=== PATIENT | female | born 1985 | race Asian ===

== ENCOUNTER 2016-06-22 15:05 | Inpatient (IN) | payer OTHER ==
[~2016-06-22] VITALS: Ht 165.1 cm; Wt 67.6 kg
[~2016-06-22 15:05] MED LIST: OXYC1TAB24 PO
[2016-06-22] MEDS ORDERED: Labetalol 5 mg/mL 4 mL Inj IVPUSH ONE (15:45)
[2016-06-22 16:40] LABS: Mean Corpuscular Hemoglobin 32.7 pg (27.0-35.0); Mean Corpuscular Volume 94.9 fL (81-100)
[2016-06-22] MEDS ORDERED: Lactated Ringer's 1,000 ML IV SCH (17:10)
[2016-06-22] MEDS ORDERED: Labetalol 5 mg/mL 20 mL Inj IV ONE (17:10)
[2016-06-22] MEDS ORDERED: diphenhydrAMINE 50 mg Capsule PO PRN (18:30)
[2016-06-22] MEDS ORDERED: Oxytocin 30 Units/500 mL LR 30 UNITS in IV Premix 1 EACH IV PRN (18:30)
[2016-06-22] MEDS ORDERED: Calcium GLUCOnate 10% (Gm) 1 Gm/10 mL Inj IV PRN (18:35)
[2016-06-22] MEDS ORDERED: Magnesium Sulf 4 Gm/100 mL H2O 4 GM in IV Premix 1 EACH IV ONE (18:35)
[2016-06-22] MEDS: Magnesium Sulf 20 Gm/500mL H2O 20 GM in IV Premix 1 EACH IV SCH (19:39)
[2016-06-22] MEDS ORDERED: Labetalol 5 mg/mL 4 mL Inj IV PRN (20:25)
[2016-06-22] MEDS ORDERED: hydrALAZINE 20 mg/mL Inj IVPUSH PRN (20:25)
--- NOTE | 2016-06-23 02:16 | HP ---
[address] [address] HISTORY AND PHYSICAL PATIENT: BOSTON MCGUIRE : 1985 MR#: [id number] ADMIT: 06/22/2016 JOB ID: [id number] ADMISSION DIAGNOSIS: Severe gestational hypertension, admitted for induction of labor and blood pressure is control.. HISTORY OF PRESENT ILLNESS: The patient is 31 years old 3, para 0-0-2-0, at 36 weeks and 6 days gestational age by LMP, confirmed by first trimester ultrasound, who was sent from the office for acute onset of the elevated blood pressures. Upon arrival to the triage blood pressures were in severe ranges, Patient received two doses of IV labetalol in triage that did not improve her severe ranges of blood pressures, and Dr. Neda Snow at [facility] was consulted and recommended induction of labor and magnesium sulfate for seizure prophylaxis. Patient denied any headache, visual symptoms, right upper quadrant pain. Denied any leakage of fluid, contractions, vaginal bleeding. Reports movements. PAST OBSTETRICAL HISTORY: 2009 elective termination of with suction D and C, 2016 spontaneous and the current . PAST GYNECOLOGIC HISTORY: No history of abnormal Pap smears. No history of STDs. PAST MEDICAL HISTORY: History of chronic hypertension. Blood pressure had been normal throughout this entire except for today's office visit. PAST SURGICAL HISTORY: Breast augmentation and suction D and C. ALLERGIES: No known drug allergies. MEDICATIONS: vitamins. SOCIAL HISTORY: Denied any alcohol consumption. Denied any drugs of abuse. Denied any cigarette smoking. LABORATORIES: AB positive, antibody negative, varicella immune, rubella immune, serology nonreactive, hepatitis B surface antigen negative. HIV nonreactive. GC and chlamydia cultures negative. Quad screen negative. PREECLAMPSIA LABORATORIES: At triage, AST 25, ALT 15. Creatinine is 0.72. Urine protein creatinine ratio is less than 0.22. Hemoglobin 12.8, hematocrit 37.2, platelets 246, white blood count is 8.1. PHYSICAL EXAMINATION: GENERAL: Patient is alert, oriented x3. Vital Signs: Blood pressure ranges are 189-148 systolic 118-87 diastolic. The patient received two doses of labetalol 20 mg IV at 1618 and 40 mg of labetalol IV at 1647. Blood pressures rebounded again to severe ranges after each dose. Pulse is 83, respirations are 18. Heart: Regular rate and rhythm. Positive S1, S2. Lungs: Clear to auscultation bilaterally upper and lower zones. Abdomen: Gravid uterus. No right upper quadrant tenderness appreciated. Nondistended abdomen. Extremities: Lower extremities, no calf tenderness appreciated bilaterally. Deep tendon reflexes are 1+ upper, 1+ lower. No clonus. Cervical Exam: 1 cm dilated cervix, long and high. heart tracing is showing baseline of 145 beats per minute, positive accelerations, no decelerations, moderate variability, reactive tracing. ASSESSMENT AND PLAN: The patient is a 31-year-old, 3, para 0-0-2-0, at 36 weeks and 6 days gestational age by last menstrual period, confirmed by first trimester ultrasound, admitted for severe ranges of gestational hypertension that is not controlled with IV labetalol. Discussed with Dr. Neda Snow from [facility] group. She recommended admission for induction of labor. Although the preeclampsia labs are within normal limits, but Dr. Snow felt the patient is having evolving preeclampsia. The patient would also require magnesium sulfate for seizure prophylaxis due to severe uncontrolled hyprertension. 1. start magnesium sulfate at 4 g bolus and 2 g IV maintenance dose per hour. 2. Preeclampsia labs every 12 hours. 3. Induction of labor. We will start with cervical ripening agent considering Melvin's score of 2. 4. Discussed intrapartum analgesia options with the patient. She is still considering her options. 5. GBS unknown status. No prophylaxis indicated at 37 weeks. 6. heart tracing is reactive. We will continue with external monitoring. 7. If BP not controlled with magnesium sulfate; add labetalol 200mg Q 8hr PO and titrate up to a maximum of 800mg Q 8 hours. Then add hydralazine 10mg p.o Q 6 hrs as a second agent. All the above discussed in details with the patient who agreed to the plan. MTDD
[2016-06-23] MEDS: Lactated Ringer's 1,000 ML IV SCH ×3 (02:30→18:16)
[2016-06-23] MEDS ORDERED: fentaNYL-PF 50 mCg/mL 2 mL Inj ONE (06:09)
[2016-06-23] MEDS ORDERED: Oxytocin 10 Unit/mL Inj ONE (06:09)
[2016-06-23] MEDS ORDERED: Morphine PF 1 mg/mL 10 mL Inj ONE (06:09)
[2016-06-23] MEDS ORDERED: Bupivacaine-MPF 0.75% 30 mL Inj ONE (06:09)
[2016-06-23] MEDS ORDERED: Ondansetron 2 mg/mL 2 mL Inj ONE (06:09)
[2016-06-23] MEDS: Magnesium Sulf 20 Gm/500mL H2O 20 GM in IV Premix 1 EACH IV SCH ×2 (07:00→17:34)
[2016-06-23 07:40] LABS: BASOPHILS % (AUTO) 0.2 % (0-3); EOSINOPHILS % (AUTO) 0 % (0-5); MONOCYTES % (AUTO) 4.9 % (4-12); Mean Corpuscular Hemoglobin 33.1 pg (27.0-35.0); Mean Corpuscular Volume 95.7 fL (81-100); NEUTROPHILS % (AUTO) 86.2 % (40-74); Platelet Count 231 bil/L (150-400)
[2016-06-23] MEDS ORDERED: Sodium Citrate-Citric Acid 15 mL Solution ONE (08:09)
[2016-06-23] MEDS ORDERED: Sodium Citrate-Citric Acid 15 mL Solution PO SCH (08:20)
[2016-06-23] MEDS ORDERED: CeFAZolin Inj 2 GM in IV Premix 1 EACH IV ONE (08:20)
--- NOTE | 2016-06-23 08:24 | PCM.HPANE ---
Patient Data Surgeon Admitting Provider:Katie George MD Attending Provider:Katie George MD Primary Care Physician:Arina Other Provider:Danyelle Hernandes Anesthesia Reason for Visit Induction INDUCTION Ht/WT & BMI Body Mass Index Allergies Coded Allergies: No Known Allergies (Unverified , 05/02/15) Diabetes History Hx Diabetes?: No Medications Active Scripts oxyCODONE-Acetaminophen 5-325 mg 1 Each Tablet1-2 Tab PO Q6H PRN For Pain #20 TABLET Prov:Jocelyn Sims MD 05/02/15 History Cardiovascular History: Denies:: Congestive Heart Failure Hypertension Respiratory History: Denies:: Tuberculosis Hx Diabetes: No Smoking Status: Unknown if Ever Smoker Stop/Bang Risk Assessment Category Category 1A: Patient has history of documented sleep apnea, and HAS NOT received any narcotic, sedative or anesthesia administration during this stay. Category 1B: Patient has history of documented sleep apnea, and HAS received any narcotic , sedative or anesthesia administration during this stay Category 2: Patient has SUSPECTED Obstructive Sleep Apnea, and HAS received any narcotic , sedative or anesthesia administration during this stay. Category 3: Patient has SUSPECTED Obstructive Sleep Apnea and HAS NOT received narcotic, sedative or anesthesia administration during this stay. Category 4: Outpatient in Procedural Areas with known sleep apnea or who screen positive for High Risk via the STOP/BANG questionnaire. Exam Exam General Appearance: Alert, Oriented X3, Cooperative, Severe Distress HEENT/AIRWAY: MP 2, Neck Movement (from), Mouth Opening (wnl) Lungs: Clear to Auscultation Heart: Exam Unremarkable Meds/Labs/Diagnostics Admission Meds Current Medications Labetalol HCl (Trandate Inj) 20 mg ONCE ONCE IVPUSH Last administered on 16:21; Start 06/22/16 at 15:45; Stop 06/22/16 at 15:46; Status DC Dinoprostone 10 mg 10 mg ONCE ONCE VAGINAL Last administered on 06/22/16 19: 33; Start 06/22/16 at 18:30; Stop 06/22/16 at 18:33; Status DC Magnesium Sulfate/ Premix (Magnesium Sulf 4 Gm/100 mL H2O/ IV Premix) 100 ml @ 200 mls/hr ONCE ONCE IV Last administered on 06/22/16 19:01; Start 06/22/16 at 18:35; Stop 06/22/16 at 19:04; Status DC Labetalol HCl (Normodyne) 200 mg Q8H PO Last administered on 06/23/16t 05:48; Start 06/22/16 at 21:35 Labs Test 06/22/16 15:10 06/22/16 16:00 06/22/16 16:04 06/23/16 07:33 Hold Urine Received (Received) Urine Random Creatinine 18mg/dL (16-392) Urine Random Total Protein < 4mg/dL (0-15) Urine Protein/Creatinine Ratio < 0.22 Hematology Comments White Blood Count 11.2th/mm3 (3.8-10.1) Red Blood Count 3.50mil/mm3 (3.90-5.20) Hemoglobin 11.6g/dL (12.0-15.6) Hematocrit 33.5% (35.0-46.0) Mean Corpuscular Volume 95.7fL (81-100) Mean Corpuscular Hemoglobin 33.1pg (27.0-35.0) Mean Corpuscular Hemoglobin Concent 34.6% (32.0-37.0) Red Cell Distribution Width 12.3% (12.3-15.4) Platelet Count 231bil/L (150-400) Neutrophils (%) (Auto) 86.2% (40-74) Lymphocytes (%) (Auto) 8.5% (14-46) Monocytes (%) (Auto) 4.9% (4-12) Eosinophils (%) (Auto) 0% (0-5) Basophils (%) (Auto) 0.2% (0-3) Test 06/23/16 07:40 Plan Impression Patient chart reviewed, patient interviewed and anesthestic plan with risks, benefits, and alternatives discussed, and informed consent obtained. ASA Physical Status: ASA2 Mod Systemic Disease Anesthetic Plan: SAB Bene/Risks/Altern/Consents: Yes HP Complete Prior to Induction: Yes Carroll Odonnell MD Jun 23, 2016 08:24
[2016-06-23] MEDS ORDERED: Morphine PF 1 mg/mL 10 mL Inj EPIDURAL ONE (09:15)
[2016-06-23] MEDS ORDERED: Dexamethasone 4 mg/mL Inj IVPUSH PRN (09:15)
[2016-06-23] MEDS ORDERED: Ondansetron 2 mg/mL 2 mL Inj IVPUSH PRN (09:15)
[2016-06-23] MEDS ORDERED: Atropine 0.4 mg/mL Inj IV PRN (09:15)
[2016-06-23] MEDS ORDERED: Acetaminophen IV 1,000 MG in IV Premix 1 EACH IV ONE (09:15)
[2016-06-23] MEDS ORDERED: EPHEDrine Sulfate 50 mg/mL Inj IM PRN (09:15)
[2016-06-23] MEDS ORDERED: HYDROmorphone 1 mg/mL Inj IVPUSH PRN (09:15)
[2016-06-23] MEDS ORDERED: fentaNYL-PF 50 mCg/mL 2 mL Inj IVPUSH PRN (09:15)
[2016-06-23] MEDS ORDERED: hydrOXYzine Inj 50 MG/1 mL SDV IM PRN (09:15)
[2016-06-23] MEDS ORDERED: EPHEDrine Sulfate 50 mg/mL Inj IVPUSH PRN (09:15)
[2016-06-23] MEDS ORDERED: Hemorrhage Kit, Post Partum XX ONE (10:20)
[2016-06-23] MEDS ORDERED: LANOlin HPA 7 Gm Ointment TOPICAL PRN (10:20)
[2016-06-23] MEDS ORDERED: Oxytocin 10 Unit/mL Inj IM PRN (10:20)
[2016-06-23] MEDS ORDERED: Methylergonovine 0.2 mg/mL Inj IM PRN (10:20)
[2016-06-23] MEDS ORDERED: Carboprost 250 mCg/mL Inj IM PRN (10:20)
[2016-06-23] MEDS ORDERED: Sodium Chloride LOK Flush 10 mL Syringe IVFLUSH PRN (10:20)
[2016-06-23] MEDS ORDERED: oxyCODONE-Acetamin 5-325 mg Tablet PO PRN (10:20)
[2016-06-23] MEDS ORDERED: Oxytocin 30 Units/500 mL LR 30 UNITS in IV Premix 1 EACH IV PRN (10:20)
--- NOTE | 2016-06-23 10:20 | PCM.ANEP1 ---
Post Anesthesia Phase 1 PACU Phase 1 Assessment Anesthetic Administered: SAB Level of Alertness: Awake, talking RAYMOND's with Equal Strength: Yes Pain: No Nausea or Vomiting: No Oxygen Delivery: Room Air Lungs: Normal Air Movement Dermatome Level: T10 (Umbilicus) Carroll Odonnell MD Jun 23, 2016 10:19
[2016-06-23 18:54] LABS: BASOPHILS % (AUTO) 0.1 % (0-3); EOSINOPHILS % (AUTO) 0.1 % (0-5); MONOCYTES % (AUTO) 5.5 % (4-12); Mean Corpuscular Hemoglobin 32.5 pg (27.0-35.0); NEUTROPHILS % (AUTO) 88.6 % (40-74); Platelet Count 201 bil/L (150-400)
[2016-06-23 19:36] LABS: Magnesium 7.2 mg/dL (1.6-2.6)
[2016-06-23] MEDS ORDERED: Acetaminophen IV 1,000 MG in IV Premix 1 EACH IV PRN (23:35)
[2016-06-24] MEDS ORDERED: HYDROmorphone 1 mg/mL Inj IVPUSH PRN (00:30)
[2016-06-24 00:54] LABS: Mean Corpuscular Hemoglobin 32.7 pg (27.0-35.0); Mean Corpuscular Volume 90.8 fL (81-100)
[2016-06-24] MEDS: Magnesium Sulf 20 Gm/500mL H2O 20 GM in IV Premix 1 EACH IV SCH (05:26)
[2016-06-24] MEDS: Lactated Ringer's 1,000 ML IV SCH (06:06)
[2016-06-24 06:59] LABS: Mean Corpuscular Hemoglobin 32.5 pg (27.0-35.0); Mean Corpuscular Volume 95.1 fL (81-100)
--- NOTE | 2016-06-24 07:20 | OP ---
[address] [address] OPERATIVE REPORT PATIENT: BOSTON MCGUIRE : 1985 MR#: [id number] ADMIT: 06/22/2016 JOB ID: [id number] DATE OF SURGERY: 06/23/2016 SURGEON: Manoj Denis MD PREOPERATIVE DIAGNOSIS(ES): 1. Intrauterine at 37 weeks and 0 days gestation. 2. Preeclampsia with severe features. 3. Breech presentation. POSTOPERATIVE DIAGNOSIS(ES): 1. Intrauterine at 37 weeks and 0 days gestation. 2. Preeclampsia with severe features. 3. Breech presentation. PLSQL DEVELOPER: Joey Cueva MD. Radiology Physician Assistant was required for retraction and exposure and safe delivery of the infant. PROCEDURE: Primary section. COMPLICATIONS: None. ESTIMATED BLOOD LOSS: 500 mL. INTRAVENOUS FLUIDS: 1600 mL. URINE OUTPUT: 100 mL clear urine at the end of the procedure. FINDINGS: Normal uterus, tubes, and ovaries. Female delivered in alondra breech presentation with clear amniotic fluid and late passage of meconium, Apgars 7 and 9 at 1 and 5 minutes respectively. Weight 2858 g ,equivalent to 6 pounds 5 ounces. Placenta delivered intact with a 3-vessel cord. INDICATION: This is a 31-year-old 3, para 0-0-2-0, at 37 weeks and 0 days gestation with expected date of delivery of July 14, 2016 based on last menstrual period and consistent with 1st-trimester ultrasound. The patient was admitted for preeclampsia with severe features based on elevated blood pressure as high as 189/118. Preeclampsia labs within normal limits. Protein creatinine ratio 0.22. Blood pressure was controlled with labetalol 200 mg q.8 hours. and magnesium sulfate was started. Induction of labor was started. One dose of Cervidil was placed after further evaluation, after removal of the Cervidil presenting part was reassessed and found to be breech presentation by bedside ultrasound external cephalic versus repeat primary section were discussed with the patient including the risks, benefits, and alternatives. Patient desires to proceed with primary section. Informed consent was signed. PROCEDURE IN DETAIL: After informed consent was obtained, patient was taken to the operation room. She was placed under adequate spinal anesthesia, then she was placed in supine position with left lateral tilt. Abdomen and pelvic prep was performed in usual sterile fashion. Patient was draped. A Pfannenstiel skin incision was made at the level of 2 finger widths above the symphysis pubis. The initial incision was carried down to the fascia with Bovie cautery. The initial fascial incision was made with a scalpel. The fascia incision was then extended in curvilinear fashion using curved Smith scissors. The inferior aspect of the fascia was grasped in either side of the midline with Danish clamps, and was dissected off the underlying rectus muscles with blunt and sharp dissection. Then, the Danish clamps were placed in the superior aspect of the fascia that was grasped in either side of the midline and the fascia was dissected off the underlying rectus muscles with blunt and sharp dissection. The rectus muscles were then in the midline. The peritoneum was entered in an area clear of the vascularity with a blunt dissection. The peritoneal opening was then extended with sharp dissection and gentle traction. Bladder blade was placed. The bladder reflection was identified and bladder flap was created with Metzenbaum scissors. The bladder blade was repositioned and the uterine incision was made in the lower uterine segment in a transverse fashion with a scalpel, then was extended with gentle traction. Amniotomy was performed. Clear fluid was noted. A alondra breech presented fetus was delivered in usual technique for breech delivery without difficulty. The cord was clamped and cut as per the software implementation project manager presented in the room as infant was not vigorous. The infant was handed off to the ICU team. Cord segment was obtained for gases and the placenta was delivered spontaneously intact and sent for pathology for further evaluation. Uterus was exteriorized and cleared of any remaining clots and debris. The uterine incision was closed with 0-Vicryl in a running, interlocking fashion. A 2nd imbricating layer of 0 Monocryl was performed with good hemostasis. The posterior cul-de-sac was irrigated and cleared of any remaining clots and debris. The uterus was placed back into the abdominal cavity. The uterine incision was reexamined and hemostasis was ensured. After 1 figure of eight stitch was placed at the right corner of the uterine incision approximately 1 cm medial to the corner with excellent hemostasis. Further irrigation was performed. Then, the rectus muscles were approximated with simple interrupted stitches of 2-0 chromic. The subfascial layer was examined and hemostasis was ensured. Then the fascia was closed with 0-Vicryl in a running fashion. The subcutaneous layer was approximated with simple interrupted stitches of 2-0 chromic. The skin was closed with 4-0 Vicryl in subcuticular fashion followed by Dermabond and Steri-Strips. All sponge, instrument and needle counts were correct x2. The patient was transferred to room in stable condition. Manoj Hernandez MD, was present and scrubbed for the entire procedure. ROBINA
[2016-06-24 08:20] LABS: Magnesium 7.1 mg/dL (1.6-2.6)
[2016-06-24] MEDS: Ascorbic Acid 500 mg Tablet PO SCH ×2 (12:11→18:16)
--- NOTE | 2016-06-24 13:31 | PROG NOTE ---
[address] [address] PROGRESS NOTE PATIENT: BOSTON MCGUIRE : 1985 MR#: [id number] ADMIT: 06/22/2016 JOB ID: [id number] DATE: 06/24/2016 The patient denied any headache, visual symptoms, right upper quadrant pain, leg pain, nausea, vomiting. Postop pain controlled with pain medication. OBJECTIVE: Vital signs are 135/95 for blood pressure. Respirations are 16. Pulse is 82, temperature 37.1 degrees centigrade. Blood pressure range for the last 12-hour shift is 138-98 systolic over 95-56 diastolic. Patient received 24 hours of magnesium sulfate total 24 hours for seizure prophylaxis. Magnesium sulfate discontinued this morning. Heart is regular rate and rhythm. Positive S1, S2. Lungs clear to auscultation bilaterally. Abdomen: Firm uterine fundus palpated at 1 cm below the umbilicus. Incision is clean, dry, and intact with Steri-Strips in place. Appropriate tenderness around the incision. Perineum: No active bleeding. Lower extremities: No calf tenderness appreciated bilaterally. Deep tendon reflexes are 2+ upper, 2+ lower. No clonus. PREECLAMPSIA LABORATORIES: H and H is 10.7, 31.3. Platelets are 195. White blood count is 11.8. BUN is 7, creatinine is 0.69. AST 25, ALT 12. Magnesium level of 1.1 this morning. Stable labs. ASSESSMENT AND PLAN: Patient is a 31-year-old, 3, para 1-0-2-1, postop day #1, status post primary for breech presentation and severe uncontrolled chronic hypertension. Patient is afebrile with stable vital signs. 1. Chronic hypertension: continue labetalol 200 mg q.8 h. and will titrate dose up according to blood pressure ranges. 2. Anemia: Iron and vitamin C supplementation started. 3. Continue monitoring for signs or symptoms of preeclampsia. 4. Continue care. MTDD
[2016-06-25 06:38] LABS: Mean Corpuscular Hemoglobin 32.8 pg (27.0-35.0); Mean Corpuscular Volume 99.3 fL (81-100)
[2016-06-25 06:49] LABS: Magnesium 2.2 mg/dL (1.6-2.6)
[2016-06-25] MEDS ORDERED: FERR-83 PO (08:02)
[2016-06-25] MEDS ORDERED: OXYC1TAB24 PO (08:02)
[2016-06-25] MEDS ORDERED: DOCU-41 PO (08:02)
[2016-06-25] MEDS ORDERED: IBUP800T28 PO (08:02)
[2016-06-25] MEDS ORDERED: ASCO-294 PO (08:02)
[2016-06-25] MEDS ORDERED: LABE100T4 PO (08:02)
--- NOTE | 2016-06-25 08:09 | PCM.DIOB ---
Obstetrical Disch Instruction Dates of Hospitalization Date of Hospital Admission Jun 22, 2016 at 18:20 Providers Admitting Physician: Katie George MD Primary Care Physician: Arina Attending Physician: Katie George MD Diet Discharge Diet: No restrictions Activity Discharge Activity-General: Pelvic Rest for 6 weeks, Balance rest and activity , No lifting >15 pounds for 2 weeks, No lifting >10 pounds for 4-6 weeks Dressing and Incisional Care Dressing Care: Keep dressing clean, dry & intact, Allow Steri Stripes to fall off Hygiene: May shower, Wash incision with soap & water Additional Instructions Discharge Instructions Continue your vitamin. Take labetalol 200 mg every 8 hours for blood pressure control. Please take the iron and vitamin c together for your anemia. Do not take more pain medication (Percocet) than is necessary -- less is better. Percocet pills have Tylenol (acetaminophen) in them at 325mg per pill. Do not take Tylenol in addition to your pain medication but should take one or the other. Do not take while driving or working. Both iron and Percocet can give you constipation so you have also been given a prescription for docusate to keep you regular. Be sure to follow up in 2 weeks and then again in 6 weeks at [facility]. Pelvic rest for 6 weeks (nothing per vagina including intercourse, tampons) If you have a fever greater than 100.4, please call [facility]. There is always someone solution consultant to talk to. If you have an increase in bleeding, call [facility]. If you have a lot of bleeding suddenly, especially if you have symptoms of dizziness & weakness with it, get emergency help. If you start experiencing extreme depression, especially if you feel that you are a danger to yourself or your family, seek emergency help. You have been through a lot -- BE SURE TO TAKE CARE OF YOURSELF. You have been sent home with the following prescriptions: - Percocet 5/325 mg, take 1 tab every 4-6 hours as needed for pain. - Colace 100 mg twice a day as needed for constipation. - Ferrous sulfate 325 mg every day. - Vitamin C 500 mg every day. Take with iron. - Ibuprofen 800mg take 1 tab every 8 hours as needed for pain. Take with a meal. - Labetalol 200 mg every 8 hours. Follow-up [facility] and 6 weeks with [facility]. Your blood pressure will also be checked at your follow up appointments. Follow Up Plan Follow-up Provider (F9): [facility] Follow-up appointment: Weeks (6) Call your provider for: Fever or Chills, Shortness of breath, Heavy vaginal bleeding, Excessive constipation, Vaginal discomfort, Red painful breasts, Other (swelling in one leg or painful swelling in your legs) Aruna Ochoa DO Jun 25, 2016 08:09
[2016-06-25] MEDS: Ascorbic Acid 500 mg Tablet PO SCH (08:59)
[2016-06-25 10:36] VITALS: BP 119/85; PULSE 77; RESP 18
--- NOTE | 2016-06-25 16:05 | PCM.DC.OB ---
Obstetrical Discharge Summary Date of Service Jun 25, 2016 Date of hospital admission Jun 22, 2016 at 18:20 Date of Discharge: Jun 25, 2016 Providers Admitting Physician: Katie George MD Primary Care Physician: Arina Attending Physician: Katie George MD Diagnosis at Time of Discharge 1. 31-year-old, 3, para 1-0-2-1, status post primary for breech presentation and severe uncontrolled chronic hypertension 2. Chronic hypertension 3. Anemia Problems: Invasive procedures Primary section Date of Procedure: Jun 23, 2016 Brief History and Physical: From the history and physical performed on 06/22/2016: The patient is 31 years old 3, para 0-0-2-0, at 36 weeks and 6 days gestational age by LMP, confirmed by first trimester ultrasound, who was sent from the office for acute onset of the elevated blood pressures. Upon arrival to the triage blood pressures were in severe ranges, were a higher level then they were in the office. Patient received two doses of IV labetalol in triage that did not improve her severe ranges of blood pressures, and Dr. Neda Snow at [facility] was consulted and recommended induction of labor and magnesium sulfate for seizure prophylaxis. Patient denied any headache, visual symptoms, right upper quadrant pain. Denied any leakage of fluid, contractions, vaginal bleeding. Reports movements. Hospital Course: 1. 31-year-old, 3, para 1-0-2-1, status post primary for breech presentation and severe uncontrolled chronic hypertension -Discharged on post-operative/post- day 2. She did not have headache, blurred vision, dizziness, upper abdominal pain, dysuria, or leg pain or leg swelling. Her surgical incision was intact with Steri strips in place, no surrounding erythema or edema, and no drainage. Her uterus was firm. She did not have lower extremity edema or tenderness. -She delivered a with Apgars 7 and 9 at 1 and 5 minutes respectively, weighing 2858 g. She is and pumping. 2. Chronic hypertension, stable -Blood pressure was stable and patient was asymptomatic. Her BUN/Cr, liver function tests, and platelets were within normal limits and stable. -Continued labetalol 200 mg every 8 hours at discharge 3. Anemia, stable -Continued iron twice per day and vitamin C at discharge Ascorbate Calcium (Vitamin C) 500 Mg Tablet 500 MG PO DAILY Prescribed by: MONSE LIZAMA DO Docusate Sodium (Colace) 100 Mg Capsule 100 MG PO BID PRN PRN For Constipation Prescribed by: MONSE LIZAMA DO Ferrous Sulfate (Ferrous Sulfate) 325 Mg Tablet 325 MG PO BIDWM Prescribed by: MONSE LIZAMA DO Ibuprofen (Ibuprofen) 800 Mg Tablet 800 MG PO TID PRN PRN For Pain Prescribed by: MONSE LIZAMA DO Labetalol (Labetalol) 100 Mg Tablet 200 MG PO Q8H Prescribed by: MONSE LIZAMA DO oxyCODONE-Acetaminophen 5-325 mg (oxyCODONE-Acetaminophen 5-325 mg) 1 Each Tablet 1 TAB PO Q6H PRN PRN For Pain Prescribed by: MONSE LIZAMA DO Discontinued Medications oxyCODONE-Acetaminophen 5-325 mg (oxyCODONE-Acetaminophen 5-325 mg) 1 Each Tablet 1-2 TAB PO Q6H PRN PRN For Pain Prescribed by: MONICA LARSON MD Discharge Diet: No restrictions Discharge Activity-General: Pelvic Rest for 6 weeks, Balance rest and activity , No lifting >15 pounds for 2 weeks Patient instructions Continue your vitamin. Take labetalol 200 mg every 8 hours for blood pressure control. Please take the iron and vitamin c together for your anemia. Do not take more pain medication (Percocet) than is necessary -- less is better. Percocet pills have Tylenol (acetaminophen) in them at 325mg per pill. Do not take Tylenol in addition to your pain medication but should take one or the other. Do not take while driving or working. Both iron and Percocet can give you constipation so you have also been given a prescription for docusate to keep you regular. Be sure to follow up in 2 weeks and then again [facility]. Pelvic rest for 6 weeks (nothing per vagina including intercourse, tampons) If you have a fever greater than 100.4, please call [facility]. There is always someone consulting project director to talk to. If you have an increase in bleeding, call [facility]. If you have a lot of bleeding suddenly, especially if you have symptoms of dizziness & weakness with it, get emergency help. If you start experiencing extreme depression, especially if you feel that you are a danger to yourself or your family, seek emergency help. You have been through a lot -- BE SURE TO TAKE CARE OF YOURSELF. You have been sent home with the following prescriptions: - Percocet 5/325 mg, take 1 tab every 4-6 hours as needed for pain. - Colace 100 mg twice a day as needed for constipation. - Ferrous sulfate 325 mg every day. - Vitamin C 500 mg every day. Take with iron. - Ibuprofen 800mg take 1 tab every 8 hours as needed for pain. Take with a meal. - Labetalol 200 mg every 8 hours. Follow-up in 2 and 6 weeks with [facility]. Your blood pressure will also be checked at your follow up appointments. copies to: Manoj Denis MD; Katie George MD, Marissa L DO Jun 25, 2016 08:35
--- NOTE | 2016-06-28 19:52 | PATH ---
SURGICAL PATHOLOGY Attending Physician:Manoj Denis CASE STATUS: Signed Out PATIENT NAME: BOSTON MCGUIRE PID: [id number] : 1985 DATE COLLECTED:06/23/2016 00:00 SPECIMEN: Placenta CLINICAL HISTORY: PRE-ECLAMPSIA FINAL DIAGNOSIS: Peter Placenta: Placenta parenchyma: Weight 363 grams. Chorionic villous maturation is consistent with a mature placenta. Mild to moderate inter- and intravillous fibrin is present. No villitis identified. Umbilical Cord: Length: 3.8 cm attached. Cord attached 6.0 cm from the placental disc margin. Three vessels present. Focal, mild funisitis identified. Membranes: Ruptured 0.5 cm from the placental disc margin. No chorioamnionitis identified. ICD10: O14.90 GROSS DESCRIPTION: The specimen is received in formalin, labeled with the patient's name and consists of an intact placenta and includes placental disc (363 g, 19.1 x 15.2 x up to 3.2 cm), umbilical cord (length-3.8 cm, diameter-1.1 x 1.0 cm) and membranes. The membranes are ruptured 0.5 cm from the free edge of the placenta and are semi-translucent. The umbilical cord is attached 6.0 cm from the edge of the placenta and contains 3 vessels. The surface is smooth and shiny with no evidence of meconium identified. The maternal surface is dark maroon with normal cotyledon formation. The placental disc is spongy with no hematomas, infarcts, nodules, masses, or lesions identified. Section code: (A) edge of placenta with membranes, umbilical cord; (B-C, D-F) placenta, 4 full thickness sections. 06/27/16 ICD-9 CODES: CPT CODES: 1: 64713 Electronically Signed Out Niesha Weir MD [facility] [address], [place] [address] Technical component performed at [facility], [facility] [address], [place], [address]
== END 2016-06-25 14:14 | disposition home or self-care (01) | DRG 766 ==
LOC: FBCO 15:05 → FBC 18:20
PROVIDERS: ADMIT Obstetrics & Gynecology; ATTEND Obstetrics & Gynecology
PROC: 3E033VJ Introduction of Other Hormone into Peripheral Vein, Percutaneous Approach (ICD-10-PCS; 2016-06-22)
PROC: 10D00Z1 Extraction of Products of Conception, Low, Open Approach (ICD-10-PCS; principal; 2016-06-23 08:57)
DX: O14.14 Severe pre-eclampsia complicating childbirth (principal); O32.1XX0 Maternal care for breech presentation, not applicable or unspecified; Z3A.36 36 weeks gestation of pregnancy; Z37.0 Single live birth